=== PATIENT | male | born 1950 | race African-American/Black ===

== ENCOUNTER 2017-02-21 13:43 | Emergency (ER) | payer MEDICARE, MEDICAID ==
[~2017-02-21] VITALS: Ht 182.9 cm; Wt 98.0 kg
[~2017-02-21 13:43] MED LIST: ALD2525; CLON1PAT12; HYDR25TA; LABETOLOL; LOSARTAN
[2017-02-21 16:36] LABS: BASOPHILS % 0.6 % (0.0-2.0); HEMATOCRIT. 46.2 % (42.0-52.0); HEMOGLOBIN. 15.4 g/dL (14.0-18.0); LYMPHOCYTES % 16.9 % (20.0-50.0); MEAN CORPUSCULAR HEMOGLOBIN 30.4 pg (28.0-32.0); MEAN CORPUSCULAR VOLUME 91.2 fL (80.0-94.0); MEAN PLATELET VOLUME 7.9 fl (7.4-10.4); MONOCYTES % 7.5 % (2.0-8.0); PLATELET 198 x1000/uL (130-400); RED BLOOD CELL COUNT 5.06 mill/uL (4.7-6.1); RED CELL DISTRIBUTION WIDTH 13.6 % (11.6-14.6)
[2017-02-21 16:39] LABS: CHLORIDE 103 mEq/L (98-107)
[2017-02-21 16:44] LABS: D-DIMER 0.46 mg/L FEU (<0.50); INR 1.1; PROTHROMBIN TIME 11.2 sec (9.4-11.6)
[2017-02-21 16:48] LABS: CARBON DIOXIDE 29 mEq/L (21-32)
[2017-02-21 16:49] LABS: TROPONIN I 0.02 ng/mL (0.00-0.04)
[2017-02-21] MEDS ORDERED: METOPROLOL TARTRATE 25MG TABLET PO NR (18:45)
[2017-02-21] MEDS ORDERED: METOPROLOL TARTRATE 5MG/5ML VIAL IV NR (18:45)
[2017-02-21 19:08] LABS: *AMPHETAMINES SCREEN URINE NEGATIVE (NEGATIVE); *BARBITURATES SCREEN URINE NEGATIVE (NEGATIVE); *BENZODIAZEPINES SCREEN URINE NEGATIVE (NEGATIVE); *COCAINE SCREEN URINE NEGATIVE (NEGATIVE); CANNABINOID URINE SCREEN NEGATIVE (NEGATIVE); METHADONE URINE SCREEN NEGATIVE (NEGATIVE); OPIATES URINE SCREEN NEGATIVE (NEGATIVE); PHENCYCLIDINE URINE SCREEN NEGATIVE (NEGATIVE)
[2017-02-21 21:09] VITALS: BP 151/103
== END 2017-02-21 21:10 | disposition home or self-care (01) ==
LOC: ER 14:27
DX: R00.0 Tachycardia, unspecified (principal); I10 Essential (primary) hypertension
CPT/HCPCS: 36415; 71010; 80053; 80305; 83690; 84484; 85025; 85379; 85610; 85730; 93005; 96374; 99285; J3490